=== PATIENT | female | born 2000 | race Hispanic/Latino ===

== ENCOUNTER 2025-06-15 03:45 | Emergency (ER) | payer OTHER | END 2025-06-15 04:33 | disposition home or self-care (01) | LOC: CSHERS 03:45 | DX: R05.9 Cough, unspecified (principal) | CPT/HCPCS: 87428; 99283 ==

== ENCOUNTER 2025-07-14 18:00 | Inpatient (IN) | payer OTHER ==
[2025-07-14 19:25] VITALS: BMI 27.6
[2025-07-14] MEDS ORDERED: Acetaminophen 500 MG TAB PO PRN (19:41)
[2025-07-14] MEDS ORDERED: hydrALAZINE 20 MG/ML VIAL SLOW IVP PRN (19:41)
[2025-07-14] MEDS ORDERED: Tranexamic Acid 1,000 MG/10 ML VIAL IVP PRN (19:41)
[2025-07-14] MEDS ORDERED: Methylergonovine 0.2 MG/ML VIAL IM PRN (19:41)
[2025-07-14] MEDS ORDERED: Diphenoxylate HCl/Atropine Tablet PO PRN (19:41)
[2025-07-14] MEDS ORDERED: Lidocaine 1% (PF) 30 ML VIAL SC PRN (19:41)
[2025-07-14] MEDS ORDERED: Ondansetron PF 4 MG/2 ML Vial IVP PRN (19:41)
[2025-07-14] MEDS ORDERED: Carboprost 250 MCG/ML AMP IM PRN (19:41)
[2025-07-14] MEDS ORDERED: HYDROcodone/Acetaminophen 5/325 mg Tablet PO PRN (19:43)
[2025-07-14] MEDS ORDERED: Ibuprofen 800 MG TAB PO PRN (19:43)
[2025-07-14] MEDS ORDERED: Oxytocin 30 units/NS 500 ML 500 ML IV SCH (19:45)
[2025-07-14 20:38] LABS: Hematocrit 29.1 % (34.9-44.5); Hemoglobin 9.5 g/dL (12.0-15.5); Mean Corpuscular Hemoglobin 25.1 pg (27.0-33.0); Mean Corpuscular Volume 77.0 fL (81.6-98.3); Platelet Count 240 10x3/uL (150-450); Red Blood Cell (RBC) Count 3.78 10x6/uL (3.90-5.03); White Blood Cell (WBC) Count 9.04 10x3/uL (3.5-10.5)
[2025-07-14 21:09] LABS: Hep B Surf Ag - L&D Non-Reactive S/CO (NonReactive)
[2025-07-14 21:11] LABS: Syphilis Antibody Index 0.08 S/CO (<1.00 Non-Reactive)
[2025-07-15] MEDS: Penicillin G Potassium 5 MILL.UNITS in Sodium Chloride 0.9% 100 ML IVPB SCH (00:55)
[2025-07-15] MEDS: Penicillin G 2.5 MILL.units 2.5 MILL.UNITS in Premix 1 BAG IVPB SCH (04:51)
[2025-07-15] MEDS: fentaNYL/Ropivacaine Epidural 100 ML ONE (08:42)
[2025-07-15] MEDS ORDERED: Acetaminophen 325 MG TAB PO PRN (09:02)
[2025-07-15] MEDS ORDERED: diphenhydrAMINE 50 MG/ML VIAL IVP PRN (09:02)
[2025-07-15] MEDS ORDERED: Ondansetron PF 4 MG/2 ML Vial IVP PRN ×2 (09:02→17:10)
[2025-07-15] MEDS ORDERED: fentaNYL 2 mcg/Ropivacaine 0.2% Epidural 100 ML CADD EPIDURAL SCH (09:15)
[2025-07-15] MEDS ORDERED: Communication Order-Pharmacy FS SCH (09:15)
[2025-07-15] MEDS: Oxytocin 30 units/NS 500 ML 500 ML IV SCH (09:59)
[2025-07-15] MEDS ORDERED: Bupivacaine 0.25% HCL 30 ML VIAL ONE (13:00)
[2025-07-15] MEDS ORDERED: Bupivacaine/Epinephrine 0.25% 30 ML VIAL ONE (13:00)
[2025-07-15] MEDS ORDERED: Lidocaine 2% MPF 10 ML AMP (For Epidural Use) ONE (13:00)
[2025-07-15] MEDS ORDERED: hydrALAZINE 20 MG/ML VIAL SLOW IVP PRN (17:10)
[2025-07-15] MEDS ORDERED: Lanolin Ointment 7 GM TUBE TOP PRN (17:10)
[2025-07-15] MEDS ORDERED: diphenhydrAMINE 25 MG CAP PO PRN (17:10)
[2025-07-15] MEDS ORDERED: Milk Of Magnesia 30 ML UDCUP PO PRN (17:10)
[2025-07-15] MEDS ORDERED: Bisacodyl 10 MG SUPP PR PRN (17:10)
[2025-07-15] MEDS: Benzocaine-Menthol 82.5 ML CAN TOP PRN (17:37)
[2025-07-15] MEDS: HYDROcodone/Acetaminophen 5/325 mg Tablet PO PRN (17:37)
[2025-07-15] MEDS: Ibuprofen 800 MG TAB PO SCH (20:38)
[2025-07-15] MEDS: Ferrous Sulfate 325 MG TAB PO SCH (20:38)
[2025-07-16] MEDS: Ferrous Sulfate 325 MG TAB PO SCH (07:41)
[2025-07-17 07:42] VITALS: BP 110/70; TEMP 98.1
== END 2025-07-17 18:33 | disposition home or self-care (01) | DRG 807 ==
LOC: CSHLD 18:23 → CSHPP 07-15 19:45
PROVIDERS: ADMIT Family Medicine; ATTEND Family Medicine
PROC: 10E0XZZ Delivery of Products of Conception, External Approach (ICD-10-PCS; principal; 2025-07-15)
PROC: 0KQM0ZZ Repair Perineum Muscle, Open Approach (ICD-10-PCS; 2025-07-15)
PROC: 10907ZC Drainage of Amniotic Fluid, Therapeutic from Products of Conception, Via Natural or Artificial Opening (ICD-10-PCS; 2025-07-15)
PROC: 3E033XZ Introduction of Vasopressor into Peripheral Vein, Percutaneous Approach (ICD-10-PCS; 2025-07-15)
PROC: 4A1HXCZ Monitoring of Products of Conception, Cardiac Rate, External Approach (ICD-10-PCS; 2025-07-15)
PROC: 3E03329 Introduction of Other Anti-infective into Peripheral Vein, Percutaneous Approach (ICD-10-PCS; 2025-07-15)
DX: O99.824 Streptococcus B carrier state complicating childbirth (principal); O48.0 Post-term pregnancy; Z37.0 Single live birth; Z3A.40 40 weeks gestation of pregnancy; O70.0 First degree perineal laceration during delivery
CPT/HCPCS: 36415; 51702; 85027; 86780; 86850; 86900; 86901; 87340; J0595; J0665; J2540; J2590; J7120